=== PATIENT | male | born 1965 | race African-American/Black ===

== ENCOUNTER 2020-06-24 08:13 | Outpatient (REF) | payer OTHER, SELFPAY ==
--- NOTE | 2020-06-24 | US_ITS ---
EXAMINATION: US KIDNEYS CLINICAL INFORMATION: Flank pain COMPARISON: CT pelvis 05/27/2020 TECHNIQUE: Real-time imaging of the kidneys. Bladder not imaged. FINDINGS: RIGHT KIDNEY: 12.0 x 6.9 x 7.4 cm (SAG x AP x TRV). The kidney is normal in size, contour and echogenicity. Renal cortical thickness is normal. No calculi or focal parenchymal lesions. No hydronephrosis. LEFT KIDNEY: 10.6 x 6.2 x 6.3 cm (SAG x AP x TRV). The kidney is normal in size, contour and echogenicity. Renal cortical thickness is normal. No calculi or focal parenchymal lesions. No hydronephrosis. IMPRESSION: Unremarkable renal ultrasound.
== END 2020-06-24 08:14 | disposition home or self-care (01) ==
LOC: HO.US 08:13
PROVIDERS: PCP Physician Assistant; Visit Provider Physician Assistant
DX: I10 Essential (primary) hypertension (principal); E11.9 Type 2 diabetes mellitus without complications; R10.9 Unspecified abdominal pain
CPT/HCPCS: 76775

== ENCOUNTER 2020-07-04 08:19 | Outpatient (REF) | payer OTHER, SELFPAY ==
[2020-07-04 09:33] LABS: Alanine Aminotransferase 29 U/L (0-40); Albumin Level 4.4 g/dL (3.5-5.0); Alkaline Phosphatase 71 U/L (39-117); Anion Gap 15 (12-20); Aspartate Amino Transferase 19 U/L (5-37); Bilirubin Total 0.3 mg/dL (0.0-1.0); Blood Urea Nitrogen 19 mg/dL (9-16); Calcium 9.5 mg/dL (8.4-10.2); Carbon Dioxide 26 mmol/L (22-29); Chloride 105 mmol/L (96-108); Estimated Glomerular Filt Rate 51; Glucose Fasting 133 mg/dL (60-99); Potassium 4.5 mmol/l (3.3-5.1); Sodium 141 mmol/L (135-145); Total Protein 7.6 g/dL (6.5-8.0)
[2020-07-04 10:07] LABS: Estimated Average Glucose 154 mg/dL
[2020-07-04 11:57] LABS: Creatinine Urine 82.14 mg/dL
== END 2020-07-04 08:20 | disposition home or self-care (01) ==
LOC: HO.LAB 08:19
PROVIDERS: PCP Physician Assistant; Visit Provider Physician Assistant
DX: I10 Essential (primary) hypertension (principal); E11.9 Type 2 diabetes mellitus without complications
CPT/HCPCS: 80053; 82043; 83036

== ENCOUNTER → 2020-07-30 09:23 | Outpatient (BNVA) | payer OTHER, SELFPAY | PROVIDERS: PCP Physician Assistant; Visit Provider Anesthesiology | DX: M16.11 Unilateral primary osteoarthritis, right hip (principal) | CPT/HCPCS: 99202 ==

== ENCOUNTER 2020-08-19 07:00 | Outpatient (REF) | payer OTHER, SELFPAY | END 2020-08-19 07:01 | disposition home or self-care (01) | LOC: HO.RADIR 07:00 | PROVIDERS: Visit Provider Anesthesiology | DX: Z13.89 Encounter for screening for other disorder (principal) ==

== ENCOUNTER 2020-08-21 09:10 | Day surgery (SDC) | payer OTHER, SELFPAY ==
[2020-08-15 13:12] VITALS: BMI 43.8
--- NOTE | 2020-08-20 09:13 | HO.ANESPROP2 ---
Documented by User: Radha Ash 08/20/20 09:18 HPI - Anesthesia Eval Consult details Narrative: 55yo M for Colonoscopy [facility] Past Medical History Medical History Arthritis Diabetes Obese Sleep apnea Family History Family History Father No problems noted. Mother No problems noted. Surgical History Surgical History H/O hernia repair History of surgery Social History Social History Smoking Status: Unknown if ever smoked Meds Allergies Allergy/AdvReac Type Severity Reaction Status Date / Time acetaminophen [ACETAMINOPHEN] Allergy Unknown SWELLING Verified 07/26/20 10:27 Home Medications Medication Instructions Recorded Confirmed Type diclofenac sodium 75 mg 75 mg PO BID 07/23/20 08/15/20 History tablet,delayed release lisinopril 10 mg tablet 10 mg PO DAILY 07/23/20 08/15/20 History metformin 500 mg tablet 500 mg PO BID 07/23/20 08/15/20 History Exam Exam Date and Time: August 20, 2020 0913 Height,Weight and Vital Signs: Height 6 ft Weight 146.51 kg Pertinent Lab Results Pertinent Lab Results: Laboratory Tests 07/04/20 08:45 BUN 19 H Creatinine 1.45 H Assessment and Plan Assessment Anesthesia Assessment: Chart Reviewed Documented by User: Thierno Portillo 08/21/20 10:31 [facility] Past Medical History Medical History Arthritis Diabetes Obese Sleep apnea Family History Family History Father No problems noted. Mother No problems noted. Surgical History Surgical History H/O hernia repair History of surgery Social History Social History Smoking Status: Unknown if ever smoked Meds Allergies Allergy/AdvReac Type Severity Reaction Status Date / Time acetaminophen [ACETAMINOPHEN] Allergy Unknown SWELLING Verified 07/26/20 10:27 Home Medications Medication Instructions Recorded Confirmed Type diclofenac sodium 75 mg 75 mg PO BID 07/23/20 08/15/20 History tablet,delayed release lisinopril 10 mg tablet 10 mg PO DAILY 07/23/20 08/15/20 History metformin 500 mg tablet 500 mg PO BID 07/23/20 08/15/20 History Exam Airway Mallampati Class: III TM Dist: >3cm Neck ROM: Full Loose/Missing/Broken Teeth: No Heart: [id number] Lungs: cta b/l Assessment and Plan Assessment Anesthesia Assessment: Anesthesia Plan Discussed, PAT Visit and Chart Reviewed Final Anesthetic Review NPO: Yes ASA Class: III Final Preanesthetic Review: No Changes in Pt Med Stat, Meds/Allgs Chart Reviewed, Consent Obtained/Reviewed and Anes Risks/Benef Reviewed Patient Risk: Intermediate Procedure Risk: Low Assessment/Block/Sedation in SS: Assess/Block/Sedation-SS Anesthetic Plan Anesthetic Plan: MAC: Disposition: Standard PACU
[2020-08-21 09:54] LABS: Glucose, Whole Blood 106 mg/dL (60-115)
[2020-08-21 09:57] VITALS: BP 136/84; PULSE 76; RESP 18; TEMP 36.3; O2SAT 95
--- NOTE | 2020-08-21 10:12 | P.HPSUR_ITS ---
Pre-Procedural Eval Section B Chief Complaint: SCREENING Details of Present Illness: COLON CANCER SCREENING NON HIGH RISK Relevant Family History (Specify if Yes): No Relevant Social History: None Medical History: Significant History (MORBID OBESITY, RACHELLE, DIABETES) History of Previous Operations: No relevant previous surgery Allergies: Allergies Allergy/AdvReac Type Severity Reaction Status Date / Time acetaminophen [ACETAMINOPHEN] Allergy Unknown SWELLING Verified 07/26/20 10:27 Review of Systems Sugical H&P ROS: Negative: Neurological, Psychiatric, Allergic/Immunologic and Gastrointestinal and Yes, Specify: Constitution (M.O), Cardiovascular (HYPERTEN ADRIEL), Respiratory (RACHELLE) and Endocrine (DIABETES) Exam Surgical H&P Exam: Normal: HEENT, Normal: Heart and Normal: Lungs and Significant Findings: Abdomen (OBESE) Plan Diagnosis/Plan: Unchanged Patient has been examined and remains a candidate for the planned procedure--YES
--- NOTE | 2020-08-21 10:46 | PM.OP ---
Brief Operative Note Date of Service: 08/21/20 Pre-op diagnosis: COLON CANCER SCREENING,NO KNOWN HIGH RISK Post-op diagnosis: other (1-2+ INTERNAL HEMORRHOIDS.) Procedure: COLONOSCOPY Implants: N/A Surgeon: Karime Jackson MD Anesthesia: MAC (Mary LIRIANO CRNA) Estimated blood loss (mL): 0 Pathology: none sent Condition: stable Disposition: PACU
[2020-08-21 10:48] VITALS: BP 128/74; PULSE 71; RESP 16; TEMP 37.1; O2SAT 94
[2020-08-21 11:03] VITALS: BP 128/72; PULSE 74; RESP 16; TEMP 37.1; O2SAT 96
--- NOTE | 2020-08-21 11:18 | HO.POSTANES ---
Post Anesthesia Evaluation Post Anesthesia Evaluation Vital Signs: Vital Signs Temp Pulse Resp BP Pulse Ox 08/21/20 11:03 98.8 F 74 16 128/72 96 08/21/20 10:48 98.8 F 71 16 128/74 94 08/21/20 09:57 97.3 F 76 18 136/84 95 Anesthesia: Monitored Mental Status: Awake Pain Control: Satisfactory Nausea/Vomiting: None Hydration: Adequate Anesthesia-Related Issues: No Anes. Related Issues
--- NOTE | 2020-08-29 22:44 | OP_ITS ---
SURGEON: Karime Jackson MD PROCEDURE PERFORMED: Colonoscopy. ESTIMATED BLOOD LOSS: None. COMPLICATIONS: No complications. ANESTHESIA: Monitored ANESTHESIOLOGIST: Mary Camacho CRNA ASSISTANTS: NONE SPECIMENS:--NONE PREOPERATIVE DIAGNOSES: The patient has multiple comorbidities such as sleep apnea, diabetes, morbid obesity, hypertension, and chronic kidney disease. He also tells me he has had NOT YET HAD HIS FLU SHOT. Colon Cancer Screening. POSTOPERATIVE DIAGNOSES: Negative exam for polyps or colon cancer. 1 to 2+ internal hemorrhoids. STRATEGIC PARTNER DEVELOPMENT MANAGER: Karime Jackson MD. CONDITION: Postprocedure, stable. FINDINGS: Digital rectal exam: The prostate was not well felt on this exam. Video colonoscope was introduced without difficulty. It was navigated into the rectosigmoid sigmoid. There was moderate redundancy throughout the colon. We were able to reach the level of the cecal cap. Appendiceal orifice was seen. Ileocecal valve was well seen. Prep was excellent. However, there were areas of only fair visualization due to fecal residue. Slow withdrawal of scope. Good rotational views. No additional lesions were seen. Anorectal verge was clear. There were 1 to 2+ internal hemorrhoids in the anal canal. PLAN: Current recommendations for this patient would be 3- 5 years with yearly FIT testing done. TYPE OF ANESTHESIA: Monitored. ORNAMENTAL METAL ERECTOR APPRENTICE: None. SPECIMEN: No specimens removed. GRAFT OR IMPLANTS: No grafts or implants. Karime Jackson MD MEN/MODL / [id number] MTDD
== END 2020-08-21 11:25 | disposition home or self-care (01) ==
PROVIDERS: PCP Physician Assistant; Visit Provider Internal Medicine Gastroenterology
PROC: 0DJD8ZZ Inspection of Lower Intestinal Tract, Via Natural or Artificial Opening Endoscopic (ICD-10-PCS; CPT 45378; principal; 2020-08-21 10:30)
DX: Z12.11 Encounter for screening for malignant neoplasm of colon (principal); K64.8 Other hemorrhoids; E11.9 Type 2 diabetes mellitus without complications; Z79.84 Long term (current) use of oral hypoglycemic drugs; E66.01 Morbid (severe) obesity due to excess calories; I12.9 Hypertensive chronic kidney disease with stage 1 through stage 4 chronic kidney disease, or unspecified chronic kidney disease; N18.9 Chronic kidney disease, unspecified; Z79.899 Other long term (current) drug therapy
CPT/HCPCS: 45378; 82947

== ENCOUNTER 2020-09-02 05:09 | Outpatient (REF) | payer OTHER, SELFPAY | END 2020-09-02 05:10 | disposition home or self-care (01) | LOC: HO.RADIR 05:09 | PROVIDERS: Visit Provider Anesthesiology | DX: Z13.89 Encounter for screening for other disorder (principal) ==

== ENCOUNTER → 2020-09-11 08:42 | Outpatient (BNVA) | payer OTHER, SELFPAY | PROVIDERS: Visit Provider Physician Assistant | DX: Z76.89 Persons encountering health services in other specified circumstances (principal) ==

== ENCOUNTER → 2020-10-09 09:25 | Outpatient (BNVA) | payer OTHER, SELFPAY | PROVIDERS: Visit Provider Orthopaedic Surgery | DX: E11.22 Type 2 diabetes mellitus with diabetic chronic kidney disease (principal); I12.9 Hypertensive chronic kidney disease with stage 1 through stage 4 chronic kidney disease, or unspecified chronic kidney disease; N18.30 Chronic kidney disease, stage 3 unspecified; M16.11 Unilateral primary osteoarthritis, right hip | CPT/HCPCS: 99212 ==

== ENCOUNTER 2020-11-20 14:41 | Emergency (ER) | payer OTHER, SELFPAY ==
--- NOTE | ~2020-11-20 | XR_ITS ---
EXAMINATION: RIGHT HIP, RIGHT KNEE AND RIGHT WRIST. CLINICAL INFORMATION: Fall. Pain. COMPARISON: None TECHNIQUE: AP pelvis and right hip 3 views. Right knee 5 views. Right wrist 4 views FINDINGS: RIGHT WRIST: There is no visible acute fracture, dislocation or subluxation seen. The radioulnar-carpal alignment and the intercarpal alignment is maintained normal. The carpal metacarpal joints space is maintained normal. There is no acute fracture or dislocation seen. The scaphoid bone is intact. RIGHT KNEE: The tricompartment joint space is maintained normal. No visible acute fracture or dislocation seen. There are no loose bodies, bony erosive changes or abnormal joint effusion. The soft tissues are normal. AP PELVIS AND RIGHT HIP: There is severe loss of right hip joint space with subchondral cystic changes along the acetabulum and the femoral head. There are 3 cancellous screws traversing the left femoral neck for an old fracture. No visible acute fracture, dislocation or subluxation seen. XR/XR hip RT min 2V IMPRESSION: Unremarkable right wrist exam. Unremarkable right knee exam. Moderate to severe degenerative changes right hip joint but no acute fracture or dislocation. There are 3 cancellous screws traversing the left femoral neck for an old healed fracture.
--- NOTE | ~2020-11-20 | XR_ITS ---
EXAMINATION: RIGHT HIP, RIGHT KNEE AND RIGHT WRIST. CLINICAL INFORMATION: Fall. Pain. COMPARISON: None TECHNIQUE: AP pelvis and right hip 3 views. Right knee 5 views. Right wrist 4 views FINDINGS: RIGHT WRIST: There is no visible acute fracture, dislocation or subluxation seen. The radioulnar-carpal alignment and the intercarpal alignment is maintained normal. The carpal metacarpal joints space is maintained normal. There is no acute fracture or dislocation seen. The scaphoid bone is intact. RIGHT KNEE: The tricompartment joint space is maintained normal. No visible acute fracture or dislocation seen. There are no loose bodies, bony erosive changes or abnormal joint effusion. The soft tissues are normal. AP PELVIS AND RIGHT HIP: There is severe loss of right hip joint space with subchondral cystic changes along the acetabulum and the femoral head. There are 3 cancellous screws traversing the left femoral neck for an old fracture. No visible acute fracture, dislocation or subluxation seen. XR/XR knee RT 4V IMPRESSION: Unremarkable right wrist exam. Unremarkable right knee exam. Moderate to severe degenerative changes right hip joint but no acute fracture or dislocation. There are 3 cancellous screws traversing the left femoral neck for an old healed fracture.
--- NOTE | ~2020-11-20 | XR_ITS ---
EXAMINATION: RIGHT HIP, RIGHT KNEE AND RIGHT WRIST. CLINICAL INFORMATION: Fall. Pain. COMPARISON: None TECHNIQUE: AP pelvis and right hip 3 views. Right knee 5 views. Right wrist 4 views FINDINGS: RIGHT WRIST: There is no visible acute fracture, dislocation or subluxation seen. The radioulnar-carpal alignment and the intercarpal alignment is maintained normal. The carpal metacarpal joints space is maintained normal. There is no acute fracture or dislocation seen. The scaphoid bone is intact. RIGHT KNEE: The tricompartment joint space is maintained normal. No visible acute fracture or dislocation seen. There are no loose bodies, bony erosive changes or abnormal joint effusion. The soft tissues are normal. AP PELVIS AND RIGHT HIP: There is severe loss of right hip joint space with subchondral cystic changes along the acetabulum and the femoral head. There are 3 cancellous screws traversing the left femoral neck for an old fracture. No visible acute fracture, dislocation or subluxation seen. XR/XR wrist RT min 3V IMPRESSION: Unremarkable right wrist exam. Unremarkable right knee exam. Moderate to severe degenerative changes right hip joint but no acute fracture or dislocation. There are 3 cancellous screws traversing the left femoral neck for an old healed fracture.
[2020-11-20 14:52] VITALS: BP 136/67; BP 150/90; PULSE 90; PULSE 95; RESP 18; TEMP 37.3; O2SAT 95; BMI 40.0
--- NOTE | 2020-11-20 15:03 | ED.LOWEXIN ---
HPI - Extremity Injury (Lower) General Source: patient, EMS and RN notes reviewed Mode of arrival: EMS Limitations: no limitations History of Present Illness HPI Narrative: 55-year-old male here today after sustaining a fall. Patient was getting of [employer] bus, missed last step and when he stepped on the ground his right leg gave out on him. Patient denies hitting his head, however he fell onto his right side injuring his right wrist, right knee and right hip. Patient reports that his fall was mechanical and not due to any symptoms like dizziness, chest pain, palpitations or shortness of breath. Denies any other symptoms. Related Data Previous Rx's Medication Instructions Recorded lisinopril 10 mg tablet 10 mg PO DAILY #90 tab 08/22/20 baclofen 20 mg tablet 20 mg PO BID 30 Days #60 tab 09/17/20 metformin 500 mg tablet 500 mg PO BID 30 Days #60 tab 09/17/20 blood-glucose meter #1 ea 11/03/20 oxycodone 5 mg tablet 5 mg PO Q8H PRN 4 Days #12 tab 11/03/20 blood sugar diagnostic #100 ea 11/06/20 lancets 28 gauge #100 ea 11/06/20 diclofenac sodium 75 mg 75 mg PO BID #60 tab 11/17/20 tablet,delayed release oxycodone 5 mg PO Q4-6H PRN #5 tab 11/20/20 oxycodone 5 mg PO Q4-6H PRN #5 tab 11/20/20 oxycodone 5 mg PO Q4H PRN #5 tab 11/20/20 Allergies Allergy/AdvReac Type Severity Reaction Status Date / Time acetaminophen [ACETAMINOPHEN] Allergy Unknown SWELLING Verified 11/03/20 13:35 Review of Systems Review of Systems: Yes all other systems are reviewed and are negative [facility] Past Medical History Medical History Arthritis Bleeding internal hemorrhoids Diabetes Obese Sleep apnea Surgical History H/O hernia repair History of surgery Family History Family History Father No problems noted. Mother No problems noted. Social History Social History Smoking Status: Unknown if ever smoked Advance Directives: No Advance Directives Information Provided: Yes Physical Exam Vital Signs: Vital Signs: Last Vital Signs Temp 98 F 11/20/20 15:41 Pulse 84 11/20/20 15:41 Resp 17 11/20/20 15:41 BP 165/78 H 11/20/20 15:41 Pulse Ox 98 11/20/20 15:41 Body Mass Index 40.0 Const: General: cooperative, healthy appearing and comfortable Nutritional Appearance: average body habitus Orientation/consciousness: patient oriented x3 Limitations: no limitations HENMT: Head: Yes normal to inspection Ears: hearing grossly normal bilaterally General nose exam: Normal external nose present Face and sinus: Yes normal facial exam Mouth: Normal oral and palatal mucosa present Throat: Yes posterior oropharynx normal Eyes: General: appearance normal, both eyes and all related structures Eyelids: Yes eyelids normal Conjunctivae: conjunctivae normal Sclerae: sclerae normal Pupils: Equal, round and reactive pupils present Neck: Neck: Yes normal visual inspection, Yes full ROM, Yes no lymphadenopathy, Yes trachea midline and Yes supple Thyroid: Thyroid normal Lymphatic: no lymphadenopathy noted Chest: Chest palpation & inspection: normal inspection of the chest Resp: Effort & Inspection: normal respiratory effort and able to speak in complete sentences Auscultation: clear to auscultation bilaterally Cardio: Jugular venous distension: no JVD Rate: regular rate Rhythm: regular rhythm Heart sounds: S1 normal heart sound present, S2 normal heart sound present, no gallops, no murmurs and no rubs Peripheral pulses: Peripheral pulses 2+ throughout GI: Inspection: Yes normal to inspection and No distended Palpation (GI): No hepatosplenomegaly present and No Rebound tenderness present Percussion: Yes normal to percussion Auscultation: normal bowel sounds Back/Spine/Pelvis: Cervical Spine: cervical ROM normal and No cervical muscular tenderness Thoracic/Lumbar Spine: thoracic and lumbar spine normal to inspection Skin: General skin exam: no rashes or lesions noted, elasticity normal and turgor normal Neuro: General: patient oriented x3 Cranial nerves: Yes Equal, round and reactive pupils present Extrem: Other: Patient complains of right wrist, right knee and right hip pain. Mild tenderness to R wrist and R knee as well as some tenderness into right inguinal region. General: Yes normal to inspection and Yes capillary refill normal Psych: Appearance: grossly normal Mental Status: mental status grossly normal Speech and movement: Normal speech and movement present Affect: normal affect Attitude: cooperative Thought process: Normal thought process present Insight: Good insight present (Psych) Course Course Course Narrative: 55-year-old male brought by EMS after sustaining a fall. Patient was stepping down trying to get off [employer] bus, when he missed a step and his right leg gave out under him and he fell. Patient fell onto right side injuring his right wrist, right knee and right hip. Patient denies hitting head. Fall was mechanical. Denies SOB, denies dizziness, CP, palpitations. Patient denies any other injuries. Patient reports his pain is 9/10. I will order Toradol IM. We will obtain x-ray of his right wrist, right hip and right knee. Reevaluation(s) Reevaluation #1: Patient reports that he is feeling better. All x-rays reviewed and negative. Patient able to ambulate mild pain to his right hip. We will send him home with script for pain medication. Patient is already on diclofenac and baclofen. He reports to me that he does not have any more of oxycodone I will give him 5 tablets. Patient agreeable to plan of care and verbalizes understanding. Discharge Plan Discharge Clinical Impression: Fall, Contusion of hip, right, Contusion of knee, right, Contusion of right wrist Patient Disposition: Home, Self-Care Instructions: Contusion in Adults (ED) Additional Instructions: Year x-rays were normal. Please ice painful area for 15 minutes several times a day for the next 72 hours. Please take baclofen, diclofenac and oxycodone as prescribed by your primary care provider. Please follow-up with your primary care provider in 2-3 days. Please return if your symptoms worsen or with any new concerning symptoms Prescriptions: New oxycodone 5 mg tablet 5 mg PO Q4-6H PRN (Reason: pain) Qty: 5 RF: 0 oxycodone 5 mg tablet 5 mg PO Q4H PRN (Reason: pain) Qty: 5 RF: 0 oxycodone 5 mg tablet 5 mg PO Q4-6H PRN (Reason: pain) Qty: 5 RF: 0 No Action lisinopril 10 mg tablet 10 mg PO DAILY Qty: 90 RF: 1 metformin 500 mg tablet 500 mg PO BID 30 Days Qty: 60 RF: 3 baclofen 20 mg tablet 20 mg PO BID 30 Days Qty: 60 RF: 3 (DME) FreeStyle Lite Strips Strip See Rx Instructions .ROUTE .MEDSUPPLY Qty: 100 RF: 3 (DME) lancets [FreeStyle Lancets] 28 gauge misc See Rx Instructions .ROUTE .MEDSUPPLY Qty: 100 RF: 3 diclofenac sodium 75 mg tablet,delayed release (DR/EC) 75 mg PO BID Qty: 60 RF: 3 oxycodone 5 mg tablet 5 mg PO Q8H PRN (Reason: pain) 4 Days Qty: 12 RF: 0 (DME) blood-glucose meter [FreeStyle [place]] Kit See Rx Instructions .ROUTE .MEDSUPPLY Qty: 1 RF: 0 Interventions: ED Discharge Assessment Last Done: 11/20/20 17:08 Discharge Date/Time: 11/20/20 17:12
[2020-11-20] MEDS: Ketorolac Tromethamine 60 MG/2 ML VIAL IM (15:28)
[2020-11-20 15:41] VITALS: BP 165/78; PULSE 84; RESP 17; TEMP 36.6; O2SAT 98
== END 2020-11-20 17:12 | disposition home or self-care (01) ==
PROVIDERS: Emergency Provider Emergency Medicine Emergency Medical Services; PCP Physician Assistant
DX: S89.91XA Unspecified injury of right lower leg, initial encounter (principal); S69.91XA Unspecified injury of right wrist, hand and finger(s), initial encounter; S79.911A Unspecified injury of right hip, initial encounter; M25.561 Pain in right knee; M25.531 Pain in right wrist; M25.551 Pain in right hip; Y99.9 Unspecified external cause status; W01.0XXA Fall on same level from slipping, tripping and stumbling without subsequent striking against object, initial encounter; Y93.01 Activity, walking, marching and hiking; Y92.811 Bus as the place of occurrence of the external cause; Z79.899 Other long term (current) drug therapy
CPT/HCPCS: 73110; 73502; 73564; 96372; 99284; J1885

== ENCOUNTER 2020-12-30 06:12 | Outpatient (REF) | payer OTHER, SELFPAY | END 2020-12-30 06:13 | disposition home or self-care (01) | LOC: HO.RADIR 06:12 | PROVIDERS: Visit Provider Anesthesiology | DX: Z13.89 Encounter for screening for other disorder (principal) ==

== ENCOUNTER 2021-01-06 06:26 | Outpatient (REF) | payer OTHER, SELFPAY | END 2021-01-06 06:27 | disposition home or self-care (01) | LOC: HO.RADIR 06:26 | PROVIDERS: Visit Provider Anesthesiology | DX: Z13.89 Encounter for screening for other disorder (principal) ==

== ENCOUNTER 2021-02-02 13:11 | Outpatient (REF) | payer OTHER, SELFPAY ==
[2021-02-02 14:36] LABS: MANUAL DIFF FLAG NO
[2021-02-02 14:49] LABS: Basophils Percent Auto 0.4 % (0-2); Eosinophils Percent Auto 0.4 % (0-4); Hematocrit 41.1 % (42-52); Hemoglobin 13.7 g/dl (14.0-18.0); Imm Gran Abs Auto 0.01 X10*3/uL (0.00-0.03); Imm Gran Pct Auto 0.2 % (0.0-0.4); Lymphocytes Absolute Auto 1.7 X10*3/uL (1.2-4.9); Lymphocytes Percent Auto 29.1 % (20-40); Mean Corpuscular HGB Conc 33.3 g/dl (31.0-36.0); Mean Corpuscular Hemoglobin 28.5 pg (27.0-33.0); Mean Corpuscular Volume 85.6 fL (80-98); Mean Platelet Volume 11.1 fL (9.4-12.4); Monocytes Absolute Auto 0.5 X10*3/uL (0.1-1.2); Monocytes Percent Auto 8.4 % (2-11); Neutrophils Absolute Auto 3.5 X10*3/uL (2.0-8.3); Neutrophils Percent Auto 61.5 % (45-73); Platelet Count 271 X10*3/uL (160-400); Red Cell Distribution Width 13.2 % (11.0-16.0); White Blood Count 5.7 X10*3/uL (4.8-10.8)
[2021-02-02 14:59] LABS: Alanine Aminotransferase 24 U/L (0-40); Albumin Level 4.5 g/dL (3.5-5.0); Alkaline Phosphatase 81 U/L (39-117); Anion Gap 15 (12-20); Aspartate Amino Transferase 16 U/L (5-37); Bilirubin Total 0.6 mg/dL (0.0-1.0); Blood Urea Nitrogen 11 mg/dL (9-16); Calcium 9.5 mg/dL (8.4-10.2); Carbon Dioxide 23 mmol/L (22-29); Chloride 107 mmol/L (96-108); Cholesterol 219 mg/dL; Estimated Glomerular Filt Rate 57; Glucose Fasting 89 mg/dL (60-99); HDL Cholesterol 34 mg/dL; LDL Cholesterol Calculated 154 mg/dl; Potassium 4.1 mmol/L (3.3-5.1); Sodium 141 mmol/L (135-145); Total Protein 7.6 g/dL (6.5-8.0); Triglycerides 156 mg/dL
[2021-02-02 15:20] LABS: TSH reflex Free T4 0.45 uIU/mL (0.32-4.0)
[2021-02-02 15:51] LABS: Prostate Specific Antigen Scr 1.76 ng/mL (<0.05-4.0)
== END 2021-02-02 13:12 | disposition home or self-care (01) ==
LOC: HO.LAB 13:11
PROVIDERS: PCP Physician Assistant; Visit Provider Physician Assistant
DX: E11.9 Type 2 diabetes mellitus without complications (principal); I10 Essential (primary) hypertension; M16.11 Unilateral primary osteoarthritis, right hip; Z12.5 Encounter for screening for malignant neoplasm of prostate
CPT/HCPCS: 36415; 80053; 80061; 84153; 84443; 85025

== ENCOUNTER → 2021-02-11 11:37 | Outpatient (BNVA) | payer SELFPAY | PROVIDERS: PCP Physician Assistant; Visit Provider Physician Assistant Medical | DX: Z02.79 Encounter for issue of other medical certificate (principal) ==

== ENCOUNTER → 2021-02-13 12:17 | Outpatient (BNVA) | payer OTHER, SELFPAY | PROVIDERS: PCP Physician Assistant; Visit Provider Orthopaedic Surgery | DX: M16.11 Unilateral primary osteoarthritis, right hip (principal); E11.22 Type 2 diabetes mellitus with diabetic chronic kidney disease; N18.30 Chronic kidney disease, stage 3 unspecified | CPT/HCPCS: 99212 ==

== ENCOUNTER → 2021-04-13 12:36 | Outpatient (BNVA) | payer OTHER, SELFPAY | PROVIDERS: PCP Physician Assistant; Visit Provider Orthopaedic Surgery | DX: Z01.812 Encounter for preprocedural laboratory examination (principal); Z01.810 Encounter for preprocedural cardiovascular examination ==

== ENCOUNTER → 2021-07-24 13:47 | Outpatient (BNVA) | payer OTHER, SELFPAY | PROVIDERS: PCP Physician Assistant; Visit Provider Nurse Practitioner Family ==